=== PATIENT | male | born 1975 | race Caucasian/White ===

== ENCOUNTER 2016-08-21 21:39 | Emergency (ER) | payer OTHER ==
--- NOTE | ~2016-08-21 | CR20 ---
[facility]. [facility] A Service of [facility] RADIOLOGY TEXT RESULTS PATIENT: ARLETTE LARA LOCATION: SED : 77 UNIT #: [id number] AGE: [address]: Demetrius Yusuf MD SEX: M ORDER DR: [id number] [place] [id number] E MR#: [id number] Acc #: [id number] NAME: ARLETTE LARA : 1975 SEX: M STUDY DATE/TIME: 08/21/2016 21:33 UNIT: SED ROOM: STUDY DESCRIPTION: CR Ankle Min 3 Views Lt Attending Physician: Demetrius Yusuf M.D. Ordering Physician: Demetrius Yusuf M.D. Primary Care Physician: Primary Care Physician No MEDICAL IMAGING REPORT This report is preliminary unless electronic signature is present. EXAM 3 views of the left ankle. DATE: 08/21/2016 HISTORY 41-year-old male with left ankle pain and swelling since 15:00 today after falling down and twisting ankle. COMPARISON None. FINDINGS There is an obliquely oriented, nondisplaced fracture of the distal left fibular diametaphysis. The tibia appears intact. Ankle joint maintains satisfactory alignment. Base of fifth metatarsal is intact. IMPRESSION Oblique nondisplaced fracture of the distal left fibular diametaphysis. No ankle joint dislocation. Dictated by... Ibis Hannon M.D. THIS IS AN ELECTRONICALLY VERIFIED REPORT Ibis Hannon M.D. at 08/23/2016 10:02 PM KANDACE/lauren TD: 08/22/2016 03:28 JOB #: [id number] [facility] A Service [facility] RADIOLOGY TEXT RESULTS PATIENT: ARLETTE LARA LOCATION: SED : 77 UNIT #: [id number] AGE: [address]: Demetrius Yusuf MD SEX: M ORDER DR: MEDICAL IMAGING REPORT Page 1 of 1
[~2016-08-21 21:39] MED LIST: CYANOCOBAL1000 MCG/M INJ; ISONIAZID300 MG PO; KLONOPIN PO; LORTAB 10/500 T1 TAB PO; VITAMIN B650 M1 PO; VITAMIN D-32000 UNI2 PO
== END 2016-08-21 22:43 | disposition home or self-care (01) ==
LOC: SED 21:39
DX: S82.832A Other fracture of upper and lower end of left fibula, initial encounter for closed fracture (principal); F17.210 Nicotine dependence, cigarettes, uncomplicated; X50.1XXA Overexertion from prolonged static or awkward postures, initial encounter; Y92.009 Unspecified place in unspecified non-institutional (private) residence as the place of occurrence of the external cause
CPT/HCPCS: 29515; 29540; 73610; 99283

== ENCOUNTER 2016-10-11 20:21 | Inpatient (IN) | payer OTHER ==
--- NOTE | ~2016-10-11 | CO ---
Unit #: [id number] #: [id number] Patient: ARLETTE TINOCO [id number] [address] [place], [place] [address] [id number] I MR#: [id number] NAME: ARLETTE TINOCO ROOM: 315 Age: 41 Sex: M Admission Date: 10/12/2016 : 1975 Attending Physician: Amber Marley M.D. Consultation Date: 10/12/2016 CONSULTATION REPORT REASON FOR CONSULTATION Acute hepatitis. The patient with jaundice. HISTORY OF PRESENT ILLNESS Mr. Tinoco is a 41-year-old white gentleman. 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 He presents with a history of cough and jaundice and upon admission found to have elevated bilirubin and transaminases all consistent with acute hepatitis. The patient is an IV drug user. The patient does use intravenous drugs with heroin. PAST MEDICAL HISTORY Significant for history of colitis, and interferon gamma release assay while in the retirement, recently incarceration. MEDICATIONS He is not on any medication. ALLERGIES Denies any drug allergies. FAMILY HISTORY There is no family history. SOCIAL HISTORY Lives alone. Smokes a pack of cigarette per day and does not drink alcohol. He does use injectable heroin. REVIEW OF SYSTEMS Detailed review of organ systems does not reveal any recent weight loss. No history of fever, chills, or rigors. No history of headache, seizure, chest pain, or syncope. There is history of cough, but no expectoration. No history of dysuria, hematuria, or pyuria. No history of focal seizures or extremity weakness. PHYSICAL EXAMINATION GENERAL: He is awake, alert, and oriented, and says he is hungry. VITAL SIGNS: Stable with a temperature of 98.4, pulse 66 per minute and regular, respiratory rate 16 per minute, and blood pressure 106/87. HEENT: He has mild pallor. There is an obvious icterus. No lymphadenopathy or peripheral edema. CARDIOVASCULAR: Normal heart sounds. No murmurs. LUNGS: Auscultation over the lungs reveal normal breath sounds. Good air entry. Unit #: [id number] #: [id number] Patient: ARLETTE TINOCO ABDOMEN: Soft and nontender. Liver and spleen are not palpable. Bowel sounds normal. The patient does not have any stigmata of chronic liver disease. DIAGNOSTIC STUDIES LABORATORY RESULTS: Shows an INR of 1.1. CBC is normal except for hemoglobin is 12.4 and platelet count is also normal. Serum chemistry shows normal BUN and creatinine, and his sodium and potassium 123 and 2.9 respectively. Total bilirubin was 14 yesterday, 11.8 today. Peak AST and ALT are 1241 and 828 respectively, alkaline phosphatase is 223. The patient's CK level was 2448. CLINICAL IMPRESSION The patient most likely has an acute hepatitis. He has high risk factors for percutaneous hepatitis and more likely chance of having reactivation of hepatitis B as well as hepatitis C and also needs consider possibility of herpes simplex virus and CMV. Also autoimmune hepatitis, although, this is less likely. We will obtain ARNALDO and smooth muscle antibody in that regard. No specific intervention is indicated at the present time in terms of liver function studies. The above labs were ordered. The patient will be reviewed thereafter. Thank you very much for asking me to see this gentleman. I appreciate the consult. Dictated by... Low Mathews/derik TD: 10/13/2016 03:01 JOB #: [id number] CC: Marilee Kincaid M.D. CONSULTATION REPORT Page 1 of 1 X Nacho Virgen MD X CONSULTATION REPORT
--- NOTE | ~2016-10-11 | CR126 ---
[facility] A Service of [facility] RADIOLOGY TEXT RESULTS PATIENT: ARLETTE LARA LOCATION: [facility] 315-01 : 77 UNIT #: [id number] AGE: [address]: Amber Marley MD SEX: M ORDER DR: [id number] [facility] [address] [place], [place] [address] [id number] I MR#: [id number] Acc #: [id number] NAME: ARLETTE LARA : 1975 SEX: M STUDY DATE/TIME: 10/12/2016 03:27 UNIT: [address] ROOM: [facility] STUDY DESCRIPTION: CR Foot Complete Min 3 View Lt Attending Physician: Amber Marley M.D. Ordering Physician: Marilee Kincaid M.D. Primary Care Physician: Primary Care Physician No MEDICAL IMAGING REPORT This report is preliminary unless electronic signature is present EXAM Left foot, 10/12 at 03:27 INDICATION Foot pain and soft tissue swelling for 2 weeks after a fall. FINDINGS Three views of the left foot were obtained. No comparison. No fracture or malalignment is seen. The soft tissues are within normal limits. IMPRESSION Normal left foot. Dictated by... Rober Lion Jr., M.D. THIS IS AN ELECTRONICALLY VERIFIED REPORT Rober Lion Jr., M.D. at 10/12/2016 9:53 PM EULALIA/austen TD: 10/12/2016 09:07 JOB #: [id number] MEDICAL IMAGING REPORT Page 1 of 1 COPY
--- NOTE | ~2016-10-11 | DS ---
Unit #: [id number] #: [id number] Patient: ARLETTE LARA [id number] [address] [address] [id number] I MR#: [id number] NAME: ARLETTE LARA ROOM: 315 Age: 41 Sex: M Admission Date: 10/12/2016 : 1975 Discharge Date: 10/17/2016 Attending Physician: Raquel Julien M.D. Primary Care Physician: Keshia Primary Care Physician DISCHARGE SUMMARY DISCHARGE DIAGNOSES 1. Acute hepatitis C hepatitis. 2. Acute bronchitis. 3. History of positive interferon gamma release assay for which the patient is taking [facility], but he stopped taking a few months ago. 4. Polysubstance abuse. 5. IV drug abuse. 6. Hyponatremia. 7. Hypokalemia. 8. Recent left foot fracture. Treated at [facility]. 9. History of colitis. 10. Pneumonia. 11. History of latent tuberculosis. 12. Acalculous cholecystitis. 13. Acute rhabdomyolysis. 14. History of pharyngitis. 15. Moderate protein malnutrition. 16. Elevated bilirubin secondary to acute hepatitis. 17. Abnormal TSH, 0.29. Needs outpatient followup. CONSULTANTS Dr. Irwin. Dr. Virgen. Dr. Deal. Orthopedics, Dr. Messi Barnett. DIAGNOSTIC DATA LABORATORY: Sodium 135, potassium 3.9, creatinine 0.5, calcium 8.5, AST 409, ALT 358, alkaline phosphatase 2.04, total bilirubin 4.4, albumin 2.5, hepatitis panel shows hepatitis B antibody reactive. Blood cultures growing staphylococcus species skin contamination. Cytomegalovirus IgM negative. EBV IgM negative. Blood cultures negative. Urine cultures negative. Vitamin B12 1500. IMAGING: Ultrasound of the abdomen shows acute on chronic acalculous cholecystitis. CT angiogram of the chest shows suspicious for acute cholecystitis. CT of the chest without contrast shows bilateral multifocal pneumonia. ALLERGIES No known drug allergies. Unit #: [id number] #: [id number] Patient: ARLETTE LARA DISCHARGE MEDICATIONS 1. Nystatin 5 ml p.o. q.i.d. Smhuf-b-gkijyyp. 2. Isoniazid 300 mg p.o. daily as per his physician at [facility]. Continue as recommended. 3. Nicotine 21 mg transdermal daily over the counter. 4. Amoxicillin 875 mg p.o. b.i.d. for 6 more days. 5. Vitamin B 650 mg p.o. daily. 6. Vitamin D2 50,000 units p.o. weekly. 7. Vitamin B12 1000 mcg injection monthly. HOSPITAL COURSE This is a 41-year-old admitted because of sore throat and jaundice. Acute hepatitis C hepatitis: The patient was seen by Dr. Virgen. Currently his LFTs and bilirubin are coming down. The patient will follow with [facility] liver clinic in one to two weeks time as an outpatient. Atypical pneumonia: The patient was seen by Dr. Irwin and Dr. Deal. The patient's throat is positive. The patient received IV antibiotics. The patient will be discharged one amoxicillin for six more days. IV drug abuse with polysubstance abuse: Advised to quit. The patient will follow with [facility] as an outpatient for rehab. 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 Abnormal CT with acute cholecystitis: The patient is seen by [facility]. Apparently to them less likely acute cholecystitis, most likely from his hepatitis. Currently the patient is asymptomatic. The patient will follow outpatient with primary care physician for followup. Currently he is tolerating a diet okay. Recent left ankle pain: The patient was seen by orthopedics. According to them the patient is to treat nonoperatively. The patient has received a CAM walker boot. The patient will follow with Dr. Barnett in three to four weeks time for followup. Discussed with Dr. Virgen. Okay to discharge this patient home. Discussed with infectious disease. Okay to discharge this patient home on amoxicillin. DISPOSITION Charge home. FOLLOWUP 1. Follow up with [facility] on one to two weeks time for hepatitis. 2. Follow up with [facility] for drug abuse in one to two weeks time. 3. Follow up with Dr. Barnett in three to four weeks time. Discharge time taken is 31 minutes. Dictated by... Low Temple Unit #: [id number] #: [id number] Patient: ARLETTE LARA TD: 10/17/2016 10:31 JOB #: [id number] DISCHARGE SUMMARY Page 1 of 1 X Raquel Julien MD DISCHARGE SUMMARY
--- NOTE | ~2016-10-11 | CO ---
Unit #: [id number] #: [id number] Patient: ARLETTE LARA [id number] [address] [place], [place] [address] [id number] I MR#: [id number] NAME: ARLETTE LARA ROOM: 315 Age: 41 Sex: M Admission Date: 10/12/2016 : 1975 Attending Physician: Amber Marley M.D. Primary Care Physician: Primary Care Physician No Consultation Date: 10/12/2016 CONSULTATION REPORT REQUESTING PHYSICIAN Dr. Marley. REASON FOR CONSULTATION Possible TB. HISTORY OF PRESENT ILLNESS This is a 41-year-old gentleman, who had a history of latent tuberculosis, who received INH for three months. He also has a history of polysubstance abuse including IV heroin, who was admitted through emergency room with jaundice, sore throat, and cough. He was recently released from the intermediate. He apparently had a positive QuantiFERON test and was started on INH, which she took for three months. He apparently stopped using it after three months for reasons which are not clear. He was doing fairly well until three or four days ago when he developed sore throat and cough along with chills, and then, he developed a jaundice with dark urine and light-colored stools. He did not feel very well and came to the hospital, where he was admitted, we were asked to see him for possible TB. PAST MEDICAL HISTORY History of positive QuantiFERON. No evidence of active tuberculosis in the past. He did receive three months of INH prophylaxis. He also has a history of colitis. Details are not clear. ALLERGIES Not known. HOME MEDICATIONS None in the hospital. He is on metronidazole, Desyrel, nystatin, Neurontin, nicotine, loperamide, Zofran, Ultram, methocarbamol, Rocephin, Zithromax, and Klor-Con. FAMILY HISTORY Negative. SOCIAL HISTORY He was recently released from the intermediate. He lives by himself. He smokes cigarettes daily. No history of alcohol use, but he does use drugs including IV heroin. Epidemiologic history, recently released from the intermediate. There was no recent outdoor activities like camping, hiking, or fishing. There was no exposure to any ticks or animal, specifically no exposure to cats or cattle. No recent travel or no sick contacts. Unit #: [id number] #: [id number] Patient: ARLETTE LARA SYSTEMIC REVIEW Chills, subjective fevers, sore throat, and cough, weakness, fatigue, jaundice, dark urine. No abdominal pain. No dysuria. No diarrhea. No focal neurologic symptoms. No skin rash. PHYSICAL EXAMINATION GENERAL: Reveals a young white male, who is awake and alert, in no acute distress. He is fully conscious and oriented to time, place, and person, and in fact, he feels very hungry and wants to eat. VITAL SIGNS: Temperature 98.3, no fever was documented during this admission. Heart rate is 61, respiration 18, blood pressure 103/67. He is obviously jaundiced with scleral icterus. NECK: Supple. Oral hygiene is poor. There is no edema or skin rashes. LUNGS: Clear to percussion and auscultation. HEART: Sounds normal. ABDOMEN: Soft and nontender. There is minimum discomfort in the right upper quadrant, but there is no rebound or guarding. Rodriguez sign is negative. Bowel sounds are normal. NEUROLOGIC: Nonfocal. DIAGNOSTIC STUDIES LABORATORY RESULTS: Ultrasound of the gallbladder shows possible acute or chronic acalculous cholecystitis. No abnormal biliary dilatation. There was mild hepatomegaly. CT scan of the chest shows chronic suspicious for acute cholecystitis. There was no pulmonary embolism, aortic aneurysm, aortic dissection, multifocal patchy ground-glass opacities in both lungs were seen. Influenza screen is negative. Strep throat was positive. Sodium is 133, potassium 3.3, chloride 102, CO2 of 23, BUN 8, creatinine 0.8. AST is 994, ALT 667, alkaline phosphatase 177, bilirubin 11.8. White count is 7.2, hematocrit 35, platelets 320. No left shift. HIV is nonreactive. Urine drug screen is positive for amphetamines and opiates. Urinalysis positive for bile. IMPRESSION Main issue appears to be acute onset of jaundice with constitutional symptoms. This may be compatible with acute hepatitis of unclear etiology. Although, acute cholecystitis has been suggested on imaging studies. Clinically, doubt its acute cholecystitis, since the patient does not have significant pain or Rodriguez sign. Moreover, AST and ALT of more than 500 or 600 strongly suggest acute hepatocellular injury. Pneumonia is not suspected clinically, although, infiltrates are present, it may be nonspecific. He clearly does not have any evidence of active tuberculosis. RECOMMENDATIONS We will discontinue TB isolation. Monitor liver functions closely. Surgery have been consulted for possible acute cholecystitis. As far the antibiotics are concerned, I agree with ceftriaxone and Flagyl as well as Zithromax for possible atypical coverage. Further recommendation will follow. Dictated by... Low Barrios/derik Unit #: [id number] #: [id number] Patient: ARLETTE LARA TD: 10/13/2016 13:53 JOB #: [id number] CONSULTATION REPORT Page 1 of 1 X Giovanni Deal MD X CONSULTATION REPORT
--- NOTE | ~2016-10-11 | CO ---
Unit #: [id number] #: [id number] Patient: ARLETTE LARA [id number] [address] [place], [place] [address] [id number] I MR#: [id number] NAME: ARLETTE LARA ROOM: 315 Age: 41 Sex: M Admission Date: 10/12/2016 : 1975 Attending Physician: Amber Marley M.D. Consultation Date: 10/13/2016 CONSULTATION REPORT TYPE OF CONSULTATION Ortho CHIEF COMPLAINT Left ankle fracture. HISTORY OF PRESENT ILLNESS The patient is a 42-year-old male with complaining of left ankle pain. He states that he first fell two months ago after missing a step. He was seen at [facility], where x-rays were taken and he was told he had an ankle fracture of his left ankle. He was placed into a splint. The patient has had the splint fell off and he was able to walk on it with minimal discomfort until recently, a week and half ago, he fell off a roof and injured his left ankle again. He was seen downtown at [facility], where again x-rays were taken and shown that he had a left ankle fracture. The patient says he was placed on another splint, which he removed because it was limiting his ability to walk. The patient's states he walked on his left ankle with minimal discomfort. The patient presents to [facility] complaining of overall malaise, weakness, and shortness of air, and subsequently left ankle pain. Ortho was consulted for the finding of left ankle fracture and had left ankle pain. The patient states the pain is on the lateral side of his ankle, but he is able to ambulate with regular shoe gear. The patient denies any numbness or tingling to his feet. The patient has a past history of substance abuse. The patient was recently discharged from [facility] on 07/25/2016. States he did share needles while in detention. The patient denies any other trauma or any other orthopedic injuries at this time. REVIEW OF SYSTEMS Negative for fever, chills, nausea, vomiting, numbness, or tingling. Positive for chest pain, shortness of air, headache, and blurry vision. PAST MEDICAL HISTORY The patient has a past medical history of colitis. PAST SURGICAL HISTORY None. SOCIAL HISTORY The patient is a one whnj-anm-cst smoker. Denies alcohol use. Confirms heroin with shared IV needles and was released from detention on 07/25/2016. The patient lives alone. Unit #: [id number] #: [id number] Patient: ARLETTE LARA PHYSICAL EXAMINATION GENERAL: The patient is a 42-year-old male, appears stated age. He is in no acute distress. Alert and oriented to person, place, and time. LUNGS: The patient has nonlabored breathing. HEART: Regular rate and rhythm. ABDOMEN: Soft, nontender, and nondistended. EXTREMITIES: Pedal pulses are intact with brisk cap refill. Sensation is intact to light touch bilaterally across all digits. There are no gross osseous or soft tissue deformities. No lesions, erythema, or ecchymosis noted. There is mild edema to the patient's left lateral ankle. There is tenderness to palpation over the left lateral ankle. There is a palpable bony prominence over the left fibula. Ankle range of motion is normal bilaterally. Subtalar joint, midfoot, and metatarsophalangeal joint range of motion is within normal limits. RADIOLOGY Radiographic imaging, three-view, left ankle and foot images are shown the patient has a left distal oblique fibular fracture and shows some callus formation around the fracture segment. Fractures at the level of the syndesmosis does appear to be nondisplaced. No other fracture or dislocations noted to the foot or ankle. ASSESSMENT The patient is a 42-year-old male with left oblique nondisplaced fibular fracture, closed. RECOMMENDATIONS Plan to treat this non-operatively. The patient will be placed in a CAM walker boot. He can be weightbearing as tolerated to his left lower extremity. The patient is to follow up with Dr. Barnett in [place] [address] clinic at 3 to 4 weeks. Return precautions were discussed with the patient if his left ankle has increased pain or if he has any further injury, he report to the emergency room. Orders will be given to dispense Cam boot for his left lower extremity Dictated by... Kevyn Moses M.D. for Jackie Barnett M.D. LONG/derik TD: 10/14/2016 05:28 JOB #: [id number] CONSULTATION REPORT Page 1 of 1 X X CONSULTATION REPORT
--- NOTE | ~2016-10-11 | CR72 ---
[facility] A Service of [facility] RADIOLOGY TEXT RESULTS PATIENT: ARLETTE LARA LOCATION: [facility] 315-01 : [birth year] UNIT #: [id number] AGE: [address]: Amber Marley MD SEX: M ORDER DR: [id number] [facility] [address] [place], [place] [address] [id number] I MR#: [id number] Acc #: [id number] NAME: ARLETTE LARA : 1975 SEX: M STUDY DATE/TIME: 10/11/2016 22:33 UNIT: A U ROOM: [facility] STUDY DESCRIPTION: CR Chest Single View Portable Attending Physician: Marilee Kincaid M.D. Ordering Physician: Samira Puente M.D. Primary Care Physician: No Primary Care Physician MEDICAL IMAGING REPORT This report is preliminary unless electronic signature is present EXAM Portable chest. HISTORY 41-year-old male with shortness of air, history of tuberculosis, weakness. COMPARISON 02/27/07 FINDINGS Portable view of the chest demonstrates moderate lung volumes, satisfactory technique. No infiltrates or effusions. Heart and great vessels unremarkable. There is mild prominence of the hilar regions bilaterally, which may suggest mild adenopathy. Osseous structures unremarkable. Dictated by... Shawna Christianson M.D. THIS IS AN ELECTRONICALLY VERIFIED REPORT Shawna Christianson M.D. at 10/12/2016 2:50 PM Vivian TD: 10/12/2016 06:26 JOB #: [id number] MEDICAL IMAGING REPORT Page 1 of 1 COPY
--- NOTE | ~2016-10-11 | CT16 ---
[facility] A Service of [facility] RADIOLOGY TEXT RESULTS PATIENT: ARLETTE LARA LOCATION: C3A 315-01 : 79 UNIT #: [id number] AGE: [address]: Amber Marley MD SEX: M ORDER DR: [id number] [facility] [address] [place], [place] [address] [id number] I MR#: [id number] Acc #: [id number] NAME: ARLETTE LARA : 1975 SEX: M STUDY DATE/TIME: 10/12/2016 12:52 UNIT: C3A PCU ROOM: [facility] STUDY DESCRIPTION: CT Angio Chest for PE Attending Physician: Amber Marley M.D. Ordering Physician: Amber Marley M.D. Primary Care Physician: No Primary Care Physician MEDICAL IMAGING REPORT This report is preliminary unless electronic signature is present EXAM CT angiography of the chest with contrast pulmonary embolism protocol. 10/12/2016 HISTORY 41-year-old male with cough and congestion and shortness of breath for a few days. COMPARISON CT chest without contrast 10/12/2016. AP portable chest 10/11/2016. PROCEDURE 2 mL axial images through the chest after IV contrast administration. 3-D coronal MIP reformatted images were obtained. This CT exam was performed with one or more of the following radiation dose reduction techniques: automatic exposure control, adjustment of mA and/or kV according to patient size, and iterative reconstruction. FINDINGS No pulmonary embolism is seen. No thoracic aortic aneurysm or aortic dissection is identified. No pericardial effusion or pleural effusion. Multifocal patchy ground-glass opacities are demonstrated in both lungs consistent with the appearance of multifocal pneumonia. These findings are unchanged from earlier today. No new airspace disease is seen. Incidental note is made of common origin of the brachiocephalic and left common carotid arteries from the aorta. Small amount of air is demonstrated within the right atrial appendage and right ventricle likely result of IV contrast injection. There is diffuse gallbladder wall thickening, and cholecystitis cannot be excluded. Similar findings were recorded on yesterday's study. [facility] A Service of [facility] RADIOLOGY TEXT RESULTS PATIENT: ARLETTE LARA LOCATION: C3A 315-01 : 79 UNIT #: [id number] AGE: [address]: Amber Marley MD SEX: M ORDER DR: Nonspecific stranding is demonstrated within the hepatorenal fossa, but the imaged right kidney appears unremarkable. There is also mild stranding between the second duodenal segment and kidney, thought most likely related to aforementioned suspected gallbladder disease. IMPRESSION 1. CT findings suspicious for acute cholecystitis. Similar findings were reported on the study earlier today. There is an ill-defined stranding in the hepatorenal fossa and between the duodenum and kidney, thought most likely to be related to aforementioned gallbladder disease. 2. No pulmonary embolism, aortic aneurysm or aortic dissection. 3. Multifocal patchy ground-glass opacities in both lungs unchanged from earlier today, most likely represent changes of pneumonia. Dictated by... Ibis Hannon M.D. THIS IS AN ELECTRONICALLY VERIFIED REPORT Ibis Hannon M.D. at 10/13/2016 8:36 AM Ange TD: 10/12/2016 15:23 JOB #: [id number] MEDICAL IMAGING REPORT Page 1 of 1 COPY
--- NOTE | ~2016-10-11 | CR20 ---
[facility] A Service of [facility] & [facility] RADIOLOGY TEXT RESULTS PATIENT: ARLETTE LARA LOCATION: A 315-01 : 79 UNIT #: [id number] AGE: [address]: Amber Marley MD SEX: M ORDER DR: [id number] [facility] [address] [place], [place] [address] [id number] I MR#: [id number] Acc #: [id number] NAME: ARLETTE LARA : 1975 SEX: M STUDY DATE/TIME: 10/12/2016 03:28 UNIT: A [facility] ROOM: [facility] STUDY DESCRIPTION: CR Ankle Min 3 Views Lt Attending Physician: Amber Marley M.D. Ordering Physician: Marilee Kincaid M.D. Primary Care Physician: Primary Care Physician No MEDICAL IMAGING REPORT This report is preliminary unless electronic signature is present EXAM Left ankle, 10/12 at 03:28 INDICATION Ankle pain and swelling. Fracture 2 weeks ago. No new trauma. FINDINGS Three views of the left ankle are compared with 08/21/2016. The ankle alignment remains normal. There is still some lateral soft tissue swelling. There is an oblique distal fibula fracture as seen previously. There is some callus formation now noted but the fracture line is still clearly visible. There is adjacent soft tissue calcification as well. IMPRESSION Known fibular fracture is still clearly visible. There is some callus formation at the fracture site as well as in the adjacent soft tissues. No malalignment. No new fractures. Dictated by... Rober Lion Jr., M.D. THIS IS AN ELECTRONICALLY VERIFIED REPORT Rober Lion Jr., M.D. at 10/12/2016 9:53 PM EULALIA/austen TD: 10/12/2016 09:08 JOB #: [id number] MEDICAL IMAGING REPORT Page 1 of 1 COPY
--- NOTE | ~2016-10-11 | US6 ---
[facility] A Service of [facility] RADIOLOGY TEXT RESULTS PATIENT: ARLETTE LARA LOCATION: C3A : 79 UNIT #: [id number] AGE: [address]: Amber Marley MD SEX: M ORDER DR: [id number] [facility] [address] [place], [place] [address] [id number] I MR#: [id number] Acc #: [id number] NAME: ARLETTE LARA : 1975 SEX: M STUDY DATE/TIME: 10/12/2016 13:20 UNIT: C3A PCU ROOM: [facility] STUDY DESCRIPTION: US Abdominal Limited Attending Physician: Amber Marley M.D. Ordering Physician: Amber Marley M.D. Primary Care Physician: Primary Care Physician No MEDICAL IMAGING REPORT This report is preliminary unless electronic signature is present EXAM Right lower quadrant abdominal ultrasound DATE 10/12/2016 HISTORY Abdominal pain for 2 days. Prior history of tuberculosis. COMPARISON CT angio of the chest 10/12/2016 at 12:52. CT chest without contrast 10/12/2016 at 04:42. FINDINGS Pancreas has a normal sonographic appearance. Liver demonstrates normal echotexture without focal abnormality. Intrahepatic IVC demonstrates normal color flow. Liver is mildly enlarged measuring 21.3 cm craniocaudally. The right kidney measures 14.5 cm in length without focal cortical lesion, shadowing stone or hydronephrosis. There is diffuse abnormal gallbladder wall thickening and gallbladder wall edema. The findings may represent changes of acute or chronic cholecystitis. However, no definite shadowing gallstones or gallbladder sludge is identified. The common bile duct caliber is normal, 5 mm. No intrahepatic biliary or ductal dilation is seen. IMPRESSION 1. Findings consistent with acute or chronic acalculus cholecystitis. 2. No abnormal biliary dilation. 3. Mild hepatomegaly. Dictated by... Ibis Hannon M.D. [facility] A Service [facility] RADIOLOGY TEXT RESULTS PATIENT: ARLETTE LARA LOCATION: A : 79 UNIT #: [id number] AGE: [address]: Amber Marley MD SEX: M ORDER DR: THIS IS AN ELECTRONICALLY VERIFIED REPORT Ibis Hannon M.D. at 10/13/2016 8:36 AM [facility]/to TD: 10/12/2016 15:49 JOB #: [id number] MEDICAL IMAGING REPORT Page 1 of 1 COPY
--- NOTE | ~2016-10-11 | HP ---
Unit #: [id number] #: [id number] Patient: ARLETTE LARA [id number] [address] [address] [id number] I MR#: [id number] NAME: ARLETTE LARA ROOM: 315 Age: 41 Sex: M Admission Date: 10/12/2016 : 1975 Attending Physician: Marilee Kincaid M.D. Primary Care Physician: No Primary Care Physician HISTORY AND PHYSICAL CHIEF COMPLAINT Sore throat, cough, jaundice. HISTORY This 41-year-old male, who reportedly had a positive interferon gamma release assay a few months ago with ongoing polysubstance abuse, is admitted for jaundice, sore throat and cough. The patient was released from nursing home 07/25/2016. He states that while in nursing home he tested negative for HIV and hepatitis. Did have a blood test looking for tuberculosis which he states was positive. I believe this is probably an interferon gamma release assay. He was placed on INH that he was supposed to take for nine months but only took for three months, and then stopped taking about a month or two ago. He states that he was in his usual state of health until two days ago when he developed nonproductive deep cough with sore throat, head congestion, fevers and noticed that he was more yellow in color with dark urine. He presented to this emergency department late last evening where his workup showed possible hilar adenopathy and chest x-ray. Labs are notable for hyponatremia and for hepatitis. In the ER, he was given a GI cocktail and bolused with a liter of saline. He complains of generalized pain. He tells me that he fractured his left foot recently. He is concerned about heroin withdrawal as well. Urine tox screen is positive for amphetamines and opiates. PAST MEDICAL HISTORY 1. What sounds to be a positive interferon gamma release assay while in nursing home recently. 2. Colitis. ALLERGIES None. HOME MEDICATIONS None. FAMILY HISTORY Negative for lung disease. SOCIAL HISTORY The patient lives alone. He smokes about a pack per day of tobacco, does not drink alcohol nor was he ever a heavy drinker of alcohol. Does use daily injectable heroin, does not always use clean needles. Unit #: [id number] #: [id number] Patient: LARA,ARLETTE REVIEW OF SYSTEMS Notable for generalized pain, positive TB test, colitis, tobacco abuse, jaundice, sore throat, cough. All other systems were reviewed and otherwise negative. PHYSICAL EXAMINATION GENERAL APPEARANCE: 41-year-old male who was sleeping. When I woke him he complained of generalized pain. VITAL SIGNS: Temperature 98.6, pulse 80, respirations 18, blood pressure 145/63. O2 saturation 99% on room air. HEENT: Eyes PERRLA. Extraocular muscles are intact. Scleral icterus is noted. Pharynx is fairly benign. There is maybe a little bit of white material on the patient's tongue. NECK: Supple without adenopathy or thyromegaly. CHEST: Clear. CARDIAC: Normal S1 and S2 without murmur. ABDOMEN: Bowel sounds are present. No hepatosplenomegaly, tenderness or masses. EXTREMITIES: Without edema. Track alanis noted in the left AC region. No splinter hemorrhages noted over the nail beds. NEUROLOGIC: The patient is awake, alert, oriented. His cranial nerves are intact. Equal strength throughout. DIAGNOSTIC STUDIES LABORATORY: Admission labs - hematocrit 36.3, normal white count and platelet count. SMA-12 - glucose 121, sodium 123, potassium 2.9, chloride is 93, calcium 7.9 with an albumin of 3.2. Bilirubin is 14, both direct and indirect, elevated. AST 1241, ALT 828, alkaline phos. 223. CPK is 2448. BNP normal. Alcohol level is negligible. Cardiac markers are negative. Urine tox screen positive for amphetamines and opiates. Urinalysis - positive leukocyte esterase, nitrates and protein and bile. 4+ bacteria. IMAGING: Chest x-ray - possible hilar adenopathy. ASSESSMENT 1. Sore throat, cough, possibly representing bronchitis. 2. History of positive interferon gamma release assay for which the patient only took three months of INH before he stopped three months ago. Questionable adenopathy on chest x-ray. 3. Hepatitis. 4. Polysubstance abuse. 5. Left foot fracture diagnosed at [facility] recently, per patient. 6. Hyponatremia and hypokalemia. PLANS 1. Check HIV and hepatitis profile. 2. Correct electrolytes. 3. Medications for opiate withdrawal. 4. X-ray of the left foot. Unit #: [id number] #: [id number] Patient: LARA,ARLETTE 5. Check throat swab for Strep. 6. Check influenza swab. 7. CT scan of the chest. 8. Zithromax pending above and one dose of Rocephin. 9. Further workup and consultants depending on above. Dictated by Low Torres/mary TD: 10/12/2016 07:10 JOB #: [id number] HISTORY AND PHYSICAL Page 1 of 1 X Marilee Kincaid MD X HISTORY AND PHYSICAL
--- NOTE | ~2016-10-11 | CT57 ---
[facility] A Service of [facility] & [facility] RADIOLOGY TEXT RESULTS PATIENT: ARLETTE LARA LOCATION: A 315-01 : [birth year] UNIT #: [id number] AGE: [address]: Amber Marley MD SEX: M ORDER DR: [id number] [facility] [address] [place], [place] [address] [id number] I MR#: [id number] Acc #: [id number] NAME: ARLETTE LARA : 1975 SEX: M STUDY DATE/TIME: 10/12/2016 04:42 UNIT: C3A PCU ROOM: 315 STUDY DESCRIPTION: CT Chest Wo Cont Attending Physician: Marilee Kincaid M.D. Ordering Physician: Marilee Kincaid M.D. Primary Care Physician: No Primary Care Physician MEDICAL IMAGING REPORT This report is preliminary unless electronic signature is present EXAM Chest CT, 10/12 at 04:42. INDICATIONS Sore throat, shortness of air and cough for 5 days. TECHNIQUE Axial images were obtained through the chest without contrast. Multiplanar reformats were obtained. No comparison. This CT exam was performed with one or more of the following radiation dose reduction techniques: automatic exposure control, adjustment of mA and/or kV according to patient size, and iterative reconstruction. FINDINGS Patchy multifocal infiltrates are noted in both lungs compatible with multifocal pneumonia. There is no pleural or pericardial effusion. No adenopathy is seen. Upper abdomen demonstrates apparent thick walled gallbladder, worrisome for cholecystitis. Followup with gallbladder ultrasound is recommended. IMPRESSION 1. Patchy bilateral multifocal pneumonia. 2. Findings are highly suspicious for acute cholecystitis. Gallbladder ultrasound recommended for followup. HIDA scan may be needed as well. STAT * RESULT 1. Dictated by... Rober Lion Jr., M.D. THIS IS AN ELECTRONICALLY VERIFIED REPORT Rober Lion Jr., M.D. at 10/12/2016 9:51 PM [facility] A Service of [facility] & [facility] RADIOLOGY TEXT RESULTS PATIENT: ARLETTE LARA LOCATION: A 315-01 : [birth year] UNIT #: [id number] AGE: [address]: Amber Marley MD SEX: M ORDER DR: Musa TD: 10/12/2016 06:06 JOB #: [id number] MEDICAL IMAGING REPORT Page 1 of 1 COPY
--- NOTE | ~2016-10-11 | CO ---
Unit #: [id number] #: [id number] Patient: ARLETTE LARA [id number] [address] [address] [id number] I MR#: [id number] NAME: ARLETTE LARA ROOM: 315 Age: 41 Sex: M Admission Date: 10/12/2016 : 1975 Attending Physician: Amber Marley M.D. Primary Care Physician: No Primary Care Physician Consultation Date: 10/12/2016 CONSULTATION REPORT REASON FOR CONSULT Pneumonia. HISTORY OF PRESENT ILLNESS This is a 41-year-old male with past medical history significant for latent TB, polysubstance abuse, who presented to the emergency room with sore throat, cough, and jaundice. Of note, patient was released from correction on July 25, 2016 and while he was in the correction, he tested negative for HIV and hepatitis. However, he has a positive Gold test for TB, and he was placed on prophylaxis medicine that he is unsure of the name. The patient stated that he took it for three months, then he ran out of it and had some family issues so he stopped taking it. Patient stated that he developed a nonproductive deep cough with sore throat and sinus congestion associated with fever and chills for the last couple of days. He also noted that he is becoming very jaundiced and yellowish in color. Patient continues to smoke. He is also positive for drug abuse. PAST MEDICAL HISTORY 1. Latent TB. 2. Colitis. ALLERGIES No known drug allergies. HOME MEDICATIONS None. FAMILY HISTORY Negative. SOCIAL HISTORY Patient lives alone. He smokes one pack per day. He does not drink alcohol, but he is a heroin IV addict. REVIEW OF SYSTEMS A 12-point review of systems was obtained and was negative except for what was mentioned above. PHYSICAL EXAMINATION GENERAL: The patient is 41 years old, in no acute distress. VITAL SIGNS: Blood pressure is 131/71, O2 saturation 98% on room air. Unit #: [id number] #: [id number] Patient: ARLETTE LARA HEENT: Atraumatic, normocephalic. PERRLA. EOMI. NECK: Supple. No JVD. No lymphadenopathy. CHEST: Fine rhonchi bilaterally. HEART: S1, S2. No murmur, gallops, or rubs. ABDOMEN: Soft, nontender. Bowel sounds are positive. No hepatosplenomegaly. EXTREMITIES: No edema or cyanosis. SKIN: No rashes. CENTRAL NERVOUS SYSTEM: Awake, alert, oriented x3. No focal motor/sensory deficits. DIAGNOSTIC STUDIES LABORATORY: Creatinine 0.4, sodium 133, calcium 7.7. AST 1200, total bilirubin is 11. ASSESSMENT 1. Pneumonia, likely gram-positive/atypical. 2. Latent tuberculosis. 3. Calculous cholecystitis. 4. Rhabdomyolysis. 5. IV drug abuse. 6. Hyponatremia. PLAN 1. Patient's CT chest is consistent mainly with atypical pneumonia. There are no signs of septic emboli or tuberculosis. His strep throat screening was positive. 2. Will continue patient on current antibiotics but will add Flagyl concerning for calculous cholecystitis. 3. IV hydration and keep NPO pending surgical evaluation. 4. Follow HIV and hepatitis panel from other facility. 5. Patient will need latent tuberculosis course, but I am unsure of compliance. I would like to thank Dr. Marley for allowing me to be part of this patient's care. Dictated by... Dee Irwin M.D. EA/aureliano TD: 10/12/2016 16:40 JOB #: [id number] Unit #: [id number] #: [id number] Patient: ARLETTE LARA CONSULTATION REPORT Page 1 of 1 X DEE AGUILAR MD CONSULTATION REPORT
[2016-10-11 23:23] LABS: BASOPHIL# 0.1 X10e3 (0-0.3); BASOPHIL% 0.6 % (0-2.5); EOSINOPHIL# 0.2 X10e3 (0-0.7); EOSINOPHIL% 1.9 % (0.0-7.0); HEMATOCRIT 36.3 % (38.0-50.0); HEMOGLOBIN 12.4 gm/dL (13.0-16.0); LYMPHOCYTE# 2.7 X10e3 (1.0-3.5); LYMPHOCYTE% 28.2 % (17.0-45.0); MEAN CELL VOLUME 87.6 FL (83-96); MEAN CORPUSCULAR HEMOGLOBIN 29.9 PG (28-34); MEAN CORPUSCULAR HGB CONC 34.2 g/dL (30-36); MEAN PLATELET VOLUME 8.7 FL (6.5-11.5); MONOCYTE% 10.5 % (3.0-12.0); NEUTROPHIL# 5.7 X10e3 (1.5-7.1); NEUTROPHIL% 58.8 % (40-75); PLATELET COUNT 356 X10e3 (140-420); RED BLOOD COUNT 4.15 X10e (3.90-5.60); RED CELL DISTRIBUTION WIDTH 15.2 % (11.0-15.5); WHITE BLOOD COUNT 9.7 X10e3 (4.0-10.5)
[2016-10-11 23:25] LABS: DIFF IND NO
[2016-10-11 23:33] LABS: POC - CKMB 28.7 ng/mL (0.0-7.9); POC - TROPONIN <0.05 ng/mL (<=0.05)
[2016-10-11 23:38] LABS: INR 1.1; PARTIAL THROMBOPLASTIN TIME 32.4 SECONDS (23.5-31.3); PROTHROMBIN TIME (PATIENT) 12.4 SECONDS (10.0-11.7)
[2016-10-11 23:56] LABS: ALBUMIN SERUM 3.2 g/dL (3.5-5.0); ALKALINE PHOSPHATASE 223 U/L (32-92); ALT (SGPT) 828 U/L (10-40); AST (SGOT) 1241 U/L (10-42); BILIRUBIN, DIRECT 8.6 mg/dL (0.0-0.2); BILIRUBIN,INDIRECT 5.4 mg/dL (0.0-0.9); BLOOD UREA NITROGEN 10 mg/dL (9-23); CALCIUM SERUM 7.9 mg/dL (8.4-10.2); CARBON DIOXIDE 24 mmol/L (22-31); CHLORIDE 93 mmol/L (100-111); CPK (CREATINE PHOSPHOKINASE) 2448 IU/L (36-174); CREATININE SERUM 0.4 mg/dL (0.6-1.4); GLOM FILT RATE Estimated 149.7 mL/min (>60); GLUCOSE FASTING 121 mg/dL (70-110); LIPASE 28 U/L (22-51)
[2016-10-12] LABS: ALCOHOL BLOOD <5 mg/dL (0); POTASSIUM 2.9 mmol/L (3.5-5.1); SODIUM 123 mmol/L (135-145)
[2016-10-12 01:42] LABS: URINE SOURCE CLEAN CATCH
[2016-10-12 01:56] LABS: URINE APPEARANCE TURBID; URINE BLOOD NEG (NEG); URINE COLOR DK YELLOW; URINE GLUCOSE NEG (NEG); URINE KETONE NEG (NEG); URINE LEUKOCYTE ESTERASE 1+ (NEG); URINE NITRATE POS (NEG); URINE PROTEIN 1+ (NEG); URINE SPECIFIC GRAVITY 1.034 (1.003-1.035)
[2016-10-12 01:57] LABS: CULTURE INDICATED? YES; URBCS1 AUWI NEG /[HPF] (0-2); URINE BACTERIA AUWI 4+ (NEGATIVE); URINE BILIRUBIN POS (NEG); URINE SQUAMOUS EPITHELIAL CELL FEW /[HPF]; UWBCS1 AUWI 0-2 (0-5)
[2016-10-12 02:11] LABS: AMPHETAMINE POS (NEG); BARBITURATES NEG (NEG); BENZODIAZEPINES NEG (NEG); COCAINE NEG (NEG); MARIJUANA NEG (NEG); OPIATES POS (NEG); TRICYCLIC ANTIDEPRESSANTS NEG (NEG); U METHADONE NEG (NEG)
[2016-10-12 08:34] LABS: BASOPHIL% 0.6 % (0-2.5); EOSINOPHIL# 0.1 X10e3 (0-0.7); EOSINOPHIL% 1.8 % (0.0-7.0); HEMOGLOBIN 11.7 gm/dL (13.0-16.0); LYMPHOCYTE# 1.9 X10e3 (1.0-3.5); LYMPHOCYTE% 26.3 % (17.0-45.0); MEAN CELL VOLUME 87.8 FL (83-96); MEAN CORPUSCULAR HEMOGLOBIN 29.4 PG (28-34); MEAN CORPUSCULAR HGB CONC 33.5 g/dL (30-36); MEAN PLATELET VOLUME 8.3 FL (6.5-11.5); MONOCYTE# 0.7 X10e3 (0-1.0); MONOCYTE% 10.3 % (3.0-12.0); NEUTROPHIL# 4.4 X10e3 (1.5-7.1); PLATELET COUNT 320 X10e3 (140-420); RED BLOOD COUNT 3.99 X10e (3.90-5.60); RED CELL DISTRIBUTION WIDTH 15.6 % (11.0-15.5); WHITE BLOOD COUNT 7.2 X10e3 (4.0-10.5)
[2016-10-12 08:35] LABS: DIFF IND NO
[2016-10-12 09:07] LABS: ALBUMIN SERUM 2.6 g/dL (3.5-5.0); CALCIUM SERUM 7.7 mg/dL (8.4-10.2); CREATININE SERUM 0.4 mg/dL (0.6-1.4); GLOM FILT RATE Estimated 149.7 mL/min (>60); MAGNESIUM 2.1 mg/dL (1.6-3.0); POTASSIUM 3.3 mmol/L (3.5-5.1); PROTEIN TOTAL SERUM 5.9 g/dL (6.0-8.3)
[2016-10-12 09:08] LABS: BILIRUBIN,TOTAL 11.8 mg/dL (0.2-2.0)
[2016-10-12 11:16] LABS: INFLUENZA A NEG (NEG); INFLUENZA B NEG (NEG)
[2016-10-13 01:10] LABS: BASOPHIL# 0.1 X10e3 (0-0.3); DIFF IND NO; EOSINOPHIL# 0.2 X10e3 (0-0.7); HEMATOCRIT 36.3 % (38.0-50.0); LYMPHOCYTE# 2.2 X10e3 (1.0-3.5); LYMPHOCYTE% 29.7 % (17.0-45.0); MEAN CELL VOLUME 88.3 FL (83-96); MEAN CORPUSCULAR HEMOGLOBIN 29.1 PG (28-34); MEAN CORPUSCULAR HGB CONC 32.9 g/dL (30-36); MEAN PLATELET VOLUME 9.5 FL (6.5-11.5); MONOCYTE# 0.8 X10e3 (0-1.0); NEUTROPHIL# 4.3 X10e3 (1.5-7.1); NEUTROPHIL% 56.3 % (40-75); PLATELET COUNT 363 X10e3 (140-420); RED BLOOD COUNT 4.11 X10e (3.90-5.60); RED CELL DISTRIBUTION WIDTH 15.7 % (11.0-15.5); WHITE BLOOD COUNT 7.6 X10e3 (4.0-10.5)
[2016-10-13 01:35] LABS: ALBUMIN SERUM 2.5 g/dL (3.5-5.0); BILIRUBIN,TOTAL 11.5 mg/dL (0.2-2.0); BUN/CREATININE RATIO 12.5; CALCIUM SERUM 7.8 mg/dL (8.4-10.2); CREATININE SERUM 0.4 mg/dL (0.6-1.4); GLOM FILT RATE Estimated 149.7 mL/min (>60); POTASSIUM 3.5 mmol/L (3.5-5.1); PROTEIN TOTAL SERUM 5.9 g/dL (6.0-8.3)
[2016-10-13 06:32] LABS: INR 1.1; PROTHROMBIN TIME (PATIENT) 11.9 SECONDS (10.0-11.7)
[2016-10-14 07:02] LABS: HEMATOCRIT 34.7 % (38.0-50.0); HEMOGLOBIN 11.4 gm/dL (13.0-16.0); MEAN CELL VOLUME 88.9 FL (83-96); MEAN CORPUSCULAR HEMOGLOBIN 29.2 PG (28-34); MEAN CORPUSCULAR HGB CONC 32.9 g/dL (30-36); MEAN PLATELET VOLUME 9.5 FL (6.5-11.5); RED BLOOD COUNT 3.9 X10e (3.90-5.60); RED CELL DISTRIBUTION WIDTH 15.6 % (11.0-15.5)
[2016-10-14 07:36] LABS: ALBUMIN SERUM 2.4 g/dL (3.5-5.0); BILIRUBIN,TOTAL 10.8 mg/dL (0.2-2.0); BUN/CREATININE RATIO 16.66; CALCIUM SERUM 8.1 mg/dL (8.4-10.2); CREATININE SERUM 0.3 mg/dL (0.6-1.4); GLOM FILT RATE Estimated 168.5 mL/min (>60); POTASSIUM 3.9 mmol/L (3.5-5.1); PROTEIN TOTAL SERUM 5.7 g/dL (6.0-8.3)
[2016-10-15 06:38] LABS: HEMATOCRIT 35.6 % (38.0-50.0); HEMOGLOBIN 11.9 gm/dL (13.0-16.0); MEAN CELL VOLUME 88.1 FL (83-96); MEAN CORPUSCULAR HEMOGLOBIN 29.6 PG (28-34); MEAN CORPUSCULAR HGB CONC 33.5 g/dL (30-36); MEAN PLATELET VOLUME 9.6 FL (6.5-11.5); RED BLOOD COUNT 4.04 X10e (3.90-5.60); RED CELL DISTRIBUTION WIDTH 15.8 % (11.0-15.5); WHITE BLOOD COUNT 9.7 X10e3 (4.0-10.5)
[2016-10-15 07:17] LABS: CALCIUM SERUM 7.9 mg/dL (8.4-10.2); CREATININE SERUM 0.5 mg/dL (0.6-1.4); GLOM FILT RATE Estimated 136.6 mL/min (>60); POTASSIUM 3.7 mmol/L (3.5-5.1)
[2016-10-16 03:35] LABS: ALBUMIN SERUM 2.9 g/dL (3.5-5.0); BILIRUBIN,TOTAL 8.3 mg/dL (0.2-2.0); CALCIUM SERUM 8.6 mg/dL (8.4-10.2); CREATININE SERUM 0.6 mg/dL (0.6-1.4); GLOM FILT RATE Estimated 126.7 mL/min (>60); POTASSIUM 3.8 mmol/L (3.5-5.1); PROTEIN TOTAL SERUM 7.2 g/dL (6.0-8.3)
[2016-10-16 19:31] LABS: HA AB IGM (HEPPAN) Nonreactive (()); HB CORE AB IGM (HEPPAN) Nonreactive (Nonreactive); HB S AG (HEPPAN) Nonreactive (Nonreactive); HEP C AB (HEPPAN) Reactive (Nonreactive); HEP C AB SIGNAL TO CUTOFF 7.81 ratio (<1.00)
[2016-10-17 06:20] LABS: ALBUMIN SERUM 2.5 g/dL (3.5-5.0); BILIRUBIN,TOTAL 4.4 mg/dL (0.2-2.0); CALCIUM SERUM 8.5 mg/dL (8.4-10.2); CREATININE SERUM 0.5 mg/dL (0.6-1.4); GLOM FILT RATE Estimated 136.6 mL/min (>60); POTASSIUM 3.9 mmol/L (3.5-5.1); PROTEIN TOTAL SERUM 6.3 g/dL (6.0-8.3)
[2016-10-17] MEDS ORDERED: NILSTAT PO (12:24)
[2016-10-17] MEDS ORDERED: AMOXICILLIN875 MG PO (12:25)
[2016-10-17 20:34] LABS: ANA SCREEN Negative (Negative)
[2016-10-21 18:57] LABS: HA AB IGM (HEPPAN) Nonreactive (()); HB CORE AB IGM (HEPPAN) Nonreactive (Nonreactive); HB S AG (HEPPAN) Nonreactive (Nonreactive); HEP C AB (HEPPAN) Reactive (Nonreactive)
== END 2016-10-17 16:23 | disposition home or self-care (01) | DRG 441 ==
LOC: CFTX 20:21 → CED 20:21 → CFTX 21:10 → C3A PCU 10-12 02:40 → CEDOF 10-12 02:40 → C3A PCU 10-12 02:48 → CEDOF 10-12 02:48 → CED 10-12 02:48 → C3A PCU 10-12 05:51 → CEDOF 10-12 05:51 → C3A PCU 10-12 08:01
PROVIDERS: Emergency Medicine; Family Medicine; Internal Medicine; Internal Medicine Gastroenterology
DX: B17.10 Acute hepatitis C without hepatic coma (principal); J18.9 Pneumonia, unspecified organism; M62.82 Rhabdomyolysis; E44.0 Moderate protein-calorie malnutrition; E87.1 Hypo-osmolality and hyponatremia; K81.9 Cholecystitis, unspecified; A15.9 Respiratory tuberculosis unspecified; J20.9 Acute bronchitis, unspecified; F17.210 Nicotine dependence, cigarettes, uncomplicated; S82.435A Nondisplaced oblique fracture of shaft of left fibula, initial encounter for closed fracture; W19.XXXA Unspecified fall, initial encounter; E87.6 Hypokalemia; Z71.51 Drug abuse counseling and surveillance of drug abuser; J02.0 Streptococcal pharyngitis
CPT/HCPCS: 36415; 71010; 71250; 71275; 73610; 73630; 76705; 80048; 80053; 80074; 80076; 80202; 80307; 81003; 82550; 82553; 82607; 83516; 83690; 83735; 83880; 84443; 84484; 85025; 85027; 85610; 85730; 86038; 86039; 86645; 86665; 86695; 86696; 87040; 87086; 87522; 87804; 87806; 87880; 96360; 99285; G0480; J0456; J0696; J1650; J3370; Q9967